=== PATIENT | male | born 1960 | race Caucasian/White ===

== ENCOUNTER 2018-05-31 11:10 | Observation (INO) | payer SELFPAY ==
--- NOTE | 2018-05-31 11:37 | EDPHY ---
H & P Stated Complaint: Bloody diarrhea x 2 days p eating. Denies pain, has Hx hemorrhoids Time Seen by Provider: 05/31/18 11:31 HPI/ROS: CHIEF COMPLAINT: Hematochezia HISTORY OF PRESENT ILLNESS: The patient presents to the ED with intermittent painless hematochezia that began on Tuesday. The patient denies significant abdominal discomfort. He does report he has been using Advil occasionally for back pain. The patient denies prior history of GI bleed. He denies using any anticoagulants. He is on a baby aspirin each day. The patient denies any travel outside the [facility]. He did have mild diarrhea earlier in the week. The patient denies fever, cough or congestion. The patient denies any hematemesis. REVIEW OF SYSTEMS: A comprehensive 10 point review of systems is otherwise negative aside from elements mentioned in the history of present illness. Source: Patient - Personal History Current Tetanus/Diphtheria Vaccine: Unsure - Medical/Surgical History Hx Asthma: No Hx Chronic Respiratory Disease: No Hx Diabetes: Yes Hx Cardiac Disease: No Hx Renal Disease: No Hx Cirrhosis: No Hx Alcoholism: No Hx HIV/AIDS: No Hx Splenectomy or Spleen Trauma: No Other PMH: IDDM, HTN, GERD, cholesterol - Social History Smoking Status: Never smoked - Physical Exam Exam: General Appearance: Alert, no distress Eyes: Pupils equal and round no pallor or injection ENT, Mouth: Mucous membranes moist Respiratory: There are no retractions, lungs are clear to auscultation Cardiovascular: Regular rate and rhythm Gastrointestinal: Abdomen is soft and nontender, no masses, bowel sounds normal Rectal exam: Gross blood noted on VERO Neurological: 5/5 strength all 4 extremities Skin: Warm and dry, no rashes Musculoskeletal: Neck is supple nontender Extremities: symmetrical, full range of motion Constitutional: Initial Vital Signs Temperature (C) 37.0 C 05/31/18 11:26 Heart Rate 91 05/31/18 11:26 Respiratory Rate 18 05/31/18 11:26 Blood Pressure 123/68 H 05/31/18 11:26 O2 Sat (%) 99 05/31/18 11:26 O2 Delivery Mode Room Air Allergies/Adverse Reactions: No Known Allergies Allergy (Unverified 05/31/18 11:25) Home Medications: Medication Instructions Recorded Insulin 70/30 Human 05/31/18 Lisinopril 05/31/18 Medical Decision Making ED Course/Re-evaluation: The patient presents to the ED with intermittent painless hematochezia this week. The patient is not anticoagulated. He has no abdominal pain or tenderness noted on exam. The patient fortunately is hemodynamically stable. His 1st hematocrit is 31. The patient's coagulation studies are within normal limits. The patient has been typed and screened. Consultation was made with Gastroenterology. I spoke with Dr. Claudia luna who requested the patient be prepped this evening and be made NPO after midnight in anticipation of colonoscopy tomorrow. Consultation was made with the hospitalist service. I spoke with them at 1:00 p.m.. The patient will be admitted by Dr. Richards I re-evaluated the patient at 1:00 p.m. Informing him of the plan for hospitalization and colonoscopy. Differential Diagnosis: Differential diagnosis considered includes upper GI bleed, lower GI bleed, diverticulitis, intra-abdominal malignancy - Data Points Laboratory Results: Laboratory Results 05/31/18 12:00 05/31/18 12:00 05/31/18 05/31/18 05/31/18 12:00 12:00 12:00 WBC 11.80 10^3/uL H 10^3/uL (3.80-9.50) RBC 3.30 10^6/uL L 10^6/uL (4.40-6.38) Hgb 10.3 g/dL L g/dL (13.7-17.5) Hct 31.1 % L % (40.0-51.0) MCV 94.2 fL fL (81.5-99.8) MCH 31.2 pg pg (27.9-34.1) MCHC 33.1 g/dL g/dL (32.4-36.7) RDW 13.0 % % (11.5-15.2) Plt Count 332 10^3/uL 10^3/uL (150-400) MPV 9.7 fL fL (8.7-11.7) Neut % (Auto) 79.5 % H % (39.3-74.2) Lymph % (Auto) 9.5 % L % (15.0-45.0) [place]on % (Auto) 8.5 % % (4.5-13.0) Eos % (Auto) 1.3 % % (0.6-7.6) Baso % (Auto) 0.9 % % (0.3-1.7) Nucleat RBC Rel Count 0.0 % % (0.0-0.2) Absolute Neuts (auto) 9.38 10^3/uL H 10^3/uL (1.70-6.50) Absolute Lymphs (auto) 1.12 10^3/uL 10^3/uL (1.00-3.00) Absolute Monos (auto) 1.00 10^3/uL H 10^3/uL (0.30-0.80) Absolute Eos (auto) 0.15 10^3/uL 10^3/uL (0.03-0.40) Absolute Basos (auto) 0.11 10^3/uL H 10^3/uL (0.02-0.10) Absolute Nucleated RBC 0.00 10^3/uL 10^3/uL (0-0.01) Immature Gran % 0.3 % % (0.0-1.1) Immature Gran # 0.04 10^3/uL 10^3/uL (0.00-0.10) PT 13.2 SEC SEC (12.0-15.0) INR 0.98 (0.83-1.16) APTT 27.2 SEC SEC (23.0-38.0) Sodium 135 mEq/L mEq/L (135-145) Potassium 4.7 mEq/L mEq/L (3.3-5.0) Chloride 101 mEq/L mEq/L (97-110) Carbon Dioxide 27 mEq/l mEq/l (22-31) Anion Gap 7 mEq/L mEq/L (6-14) BUN 23 mg/dL mg/dL (7-23) Creatinine 0.7 mg/dL mg/dL (0.7-1.3) Estimated GFR > 60 Glucose 190 mg/dL H mg/dL (70-100) Calcium 8.8 mg/dL mg/dL (8.5-10.4) Departure - Departure Disposition: [facility] Inpatient Acute Clinical Impression: Lower GI bleed, Anemia Condition: Good Referrals: SHANIA BOOTH [Primary Care Provider] - As per Instructions
[2018-05-31 12:13] LABS: PLATELET COUNT 332 10^3/uL (150-400)
[2018-05-31 12:34] LABS: INR 0.98 (0.83-1.16); PROTIME(PATIENT) 13.2 SEC (12.0-15.0)
[2018-05-31] MEDS ORDERED: ONDANSETRON DISINTEGRATING 4 MG TAB PO PRN (13:47)
[2018-05-31] MEDS ORDERED: ACETAMINOPHEN 325 MG TAB PO PRN (13:47)
[2018-05-31] MEDS ORDERED: ONDANSETRON 4 MG/2 ML VIAL IVP PRN (13:47)
[2018-05-31] MEDS ORDERED: PEG 3350/NA SULF,BICARB,CL/KCL (GAVILYTE-G) 4000 ML BTL PO ONE (16:00)
--- NOTE | 2018-05-31 16:47 | PDGENHP ---
History and Physical - Chief Complaint BRBPR - History of Present Illness 57 male with DM, htn, hld, and gerd presents to ED with rectal bleeding. 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 He then had a steak and developed diarrhea. This turned into bloody stool and he had 2 episodes of dawit blood. His symptoms improved, but today, he had recurrent episodes of diarrhea with blood mixed in with his stool. He denies abdominal pain, nausea or vomiting. No fevers or chills. No CP or SOB. He has never had a colonoscopy. He denies weight loss. No family h/o colon cancer. In the ED, his hgb was ~10. GI was consulted. He will be admitted for bowel prep and colonoscopy in the morning History Information - Allergies/Home Medication List Allergies/Adverse Reactions: No Known Allergies Allergy (Verified 05/31/18 14:22) Home Medications: Aspirin [Aspirin 81mg (*)] 81 mg PO DAILY 05/31/18 [Last Taken 05/31/18] Atorvastatin Calcium [Lipitor 20 mg (*)] 20 mg PO DAILY 05/31/18 [Last Taken ] Cholecalciferol Vit D3 [Vitamin D3 (*)] 5,000 units PO DAILY 05/31/18 [Last Taken 05/31/18] Hydrochlorothiazide [HCTZ (*)] 25 mg PO DAILY 05/31/18 [Last Taken 05/31/18] Insulin Aspart [novoLOG] 30 units SQ TIDMEAL 05/31/18 [Last Taken 05/31/18] Insulin Detemir [Levemir] 30 unit SQ BID 05/31/18 [Last Taken 05/31/18] Lisinopril [Zestril 40 mg (*)] 40 mg PO DAILY 05/31/18 [Last Taken 05/31/18] Multivitamins [Multivitamin (*)] 1 each PO DAILY 05/31/18 [Last Taken 05/31/18] Omeprazole 40 mg PO DAILY 05/31/18 [Last Taken 05/31/18] Venlafaxine Xr [Effexor Xr] 150 mg PO DAILY 05/31/18 [Last Taken Unknown] I have personally reviewed and updated: family history, medical history, social history, surgical history - Past Medical History diabetes type 2, GERD, hypertension, hyperlipidemia - Surgical History Reports: no pertinent surgical hx - Family History Positive for: non-pertinent - Social History Smoking Status: Never smoked Additional social history: Lives independently Review of Systems Review of Systems: ROS: 10pt was reviewed & negative except for what was stated in HPI & below Physical Exam Physical Exam: Temp Pulse Resp BP Pulse Ox 37.0 C 79 16 119/63 96 05/31/18 15:14 05/31/18 15:14 05/31/18 15:14 05/31/18 15:14 05/31/18 15:14 Constitutional: no apparent distress Eyes: PERRL Ears, Nose, Mouth, Throat: moist mucous membranes Cardiovascular: regular rate and rhythym Respiratory: no respiratory distress, clear to auscultation Gastrointestinal: normoactive bowel sounds, soft, non-tender abdomen, other ( palpable mass in left mid-abdomen, ?soft tissue / scar tissue ) Skin: warm Musculoskeletal: full muscle strength Neurologic: AAOx3 Psychiatric: interacting appropriately Lab Data & Imaging Review 05/31/18 16:15 05/31/18 12:00 WBC 11.80 10^3/uL (3.80-9.50) H 05/31/18 12:00 RBC 3.30 10^6/uL (4.40-6.38) L 05/31/18 12:00 Hgb 10.2 g/dL (13.7-17.5) L 05/31/18 16:15 Hct 30.9 % (40.0-51.0) L 05/31/18 16:15 MCV 94.2 fL (81.5-99.8) 05/31/18 12:00 MCH 31.2 pg (27.9-34.1) 05/31/18 12:00 MCHC 33.1 g/dL (32.4-36.7) 05/31/18 12:00 RDW 13.0 % (11.5-15.2) 05/31/18 12:00 Plt Count 332 10^3/uL (150-400) 05/31/18 12:00 MPV 9.7 fL (8.7-11.7) 05/31/18 12:00 Neut % (Auto) 79.5 % (39.3-74.2) H 05/31/18 12:00 Lymph % (Auto) 9.5 % (15.0-45.0) L 05/31/18 12:00 [place] % (Auto) 8.5 % (4.5-13.0) 05/31/18 12:00 Eos % (Auto) 1.3 % (0.6-7.6) 05/31/18 12:00 Baso % (Auto) 0.9 % (0.3-1.7) 05/31/18 12:00 Nucleat RBC Rel Count 0.0 % (0.0-0.2) 05/31/18 12:00 Absolute Neuts (auto) 9.38 10^3/uL (1.70-6.50) H 05/31/18 12:00 Absolute Lymphs (auto) 1.12 10^3/uL (1.00-3.00) 05/31/18 12:00 Absolute Monos (auto) 1.00 10^3/uL (0.30-0.80) H 05/31/18 12:00 Absolute Eos (auto) 0.15 10^3/uL (0.03-0.40) 05/31/18 12:00 Absolute Basos (auto) 0.11 10^3/uL (0.02-0.10) H 05/31/18 12:00 Absolute Nucleated RBC 0.00 10^3/uL (0-0.01) 05/31/18 12:00 Immature Gran % 0.3 % (0.0-1.1) 05/31/18 12:00 Immature Gran # 0.04 10^3/uL (0.00-0.10) 05/31/18 12:00 PT 13.2 SEC (12.0-15.0) 05/31/18 12:00 INR 0.98 (0.83-1.16) 05/31/18 12:00 APTT 27.2 SEC (23.0-38.0) 05/31/18 12:00 Sodium 135 mEq/L (135-145) 05/31/18 12:00 Potassium 4.7 mEq/L (3.3-5.0) 05/31/18 12:00 Chloride 101 mEq/L (97-110) 05/31/18 12:00 Carbon Dioxide 27 mEq/l (22-31) 05/31/18 12:00 Anion Gap 7 mEq/L (6-14) 05/31/18 12:00 BUN 23 mg/dL (7-23) 05/31/18 12:00 Creatinine 0.7 mg/dL (0.7-1.3) 05/31/18 12:00 Estimated GFR > 60 05/31/18 12:00 Glucose 190 mg/dL (70-100) H 05/31/18 12:00 POC Glucose 194 mg/dL (70-100) H 05/31/18 15:44 Calcium 8.8 mg/dL (8.5-10.4) 05/31/18 12:00 Patient ABO/Rh O POSITIVE 05/31/18 12:00 Antibody Screen NEGATIVE 05/31/18 12:00 Assessment & Plan Assessment: GIB - seems lower, possibly diverticular bleed versus hemorrhoidal. Given onset of symptoms was associated with diarrhea, will send GI pathogen panel. Trend h&h, transfuse for brisk bleeding of hgb <7. GI consulted. Bowel prep tonight and c-scope in am. Will give clear liquid diet and NPO after midnight. If c-scope unrevealing, consider CT scan given palpable mass/abnormality in left mid-abdomen, though pt believes this is scar tissue from insulin injections and he may be right. DM type 2 - bg 100's on arrival. Will give lower dose of Lantus given clear liquid diet and NPO after midnight planned. SSI. Hypertension - cont home meds Hyperlipidemia - cont statin Full code Dispo - obs
[2018-05-31] MEDS ORDERED: D50W 25 GM/50 ML SYR IVP PRN (17:02)
[2018-05-31] MEDS: INSULIN LISPRO 100 UNIT/ML SC SCH (17:36)
[2018-05-31] MEDS: INSULIN GLARGINE 100 UNITS/ML UNIT SC SCH (20:20)
[2018-06-01 05:19] LABS: PLATELET COUNT 305 10^3/uL (150-400)
[2018-06-01] MEDS ORDERED: HYDROCHLOROTHIAZIDE 25 MG TAB PO SCH (09:00)
[2018-06-01] MEDS ORDERED: ATORVASTATIN CALCIUM 20 MG TAB PO SCH (09:00)
[2018-06-01] MEDS ORDERED: PANTOPRAZOLE SODIUM 40 MG TAB PO SCH (09:00)
[2018-06-01] MEDS ORDERED: VENLAFAXINE XR 150 MG CAP PO SCH (09:00)
[2018-06-01] MEDS ORDERED: LISINOPRIL 40 MG TAB PO SCH (09:00)
[2018-06-01] MEDS ORDERED: LR 1,000 ML IV ONE (09:23)
[2018-06-01] MEDS ORDERED: MIDAZOLAM 2 MG/2 ML VIAL ONE (09:55)
[2018-06-01] MEDS ORDERED: fentaNYL 100 MCG/2 ML INJ ONE (09:55)
--- NOTE | 2018-06-01 09:58 | PDPROPOC ---
Sedation Plan of Care Sedation Plan of Care: vital signs stable, mental status noted, patient educated of risks, benefits, alternatives, patient can tolerate sedation ASA Classification: ASA 2 Planned drugs: fentanyl, midazolam Mallampati Score: Class 2 Mallampati Reference Image: Patient passed 3-3-2 rule?: Yes
--- NOTE | 2018-06-01 10:29 | GIREPORT ---
[facility] Surgical Services - Endoscopy Department Patient Name: Elia Kelly Procedure Date: 06/01/2018 9:58 AM Patient Type: Inpatient Attending MD/ ER Physician: Jessica Garcia MD Procedure: Colonoscopy Indications: Hematochezia Providers: Jessica Garcia MD Medicines: Fentanyl 100 micrograms IV, Midazolam 5 mg IV Complications: No immediate complications. Description of Procedure: After obtaining informed consent, the scope was passed under direct vis ion. Throughout the procedure, the patient's blood pressure, pulse, and oxyg en saturations were monitored continuously. The Colonoscope with irrigatio n channel was introduced through the anus and advanced to the terminal il eum. The colonoscopy was performed with ease. The patient tolerated the proc edure well. The quality of the bowel preparation was fair. The ileocecal valv e, appendiceal orifice, and rectum were photographed. Moderate Sedation: Moderate (conscious) sedation was administered by the endoscopy nurse gregorio chin supervised by the endoscopist. The following parameters were monitored: oxygen saturation, heart rate, blood pressure, and response to care. To girish physician intraservice time was 18 minutes. Findings: The perianal and digital rectal examinations were normal. The terminal ileum appeared normal. A patchy area of moderately congested, erythematous, eroded and granula r mucosa was found in the cecum. Biopsies were taken with a cold forceps for histology. Estimated blood loss was minimal. A single (solitary) three mm ulcer was found in the ascending colon. No bleeding was present. Biopsies were taken with a cold forceps for histo logy. Estimated blood loss was minimal. A patchy area of mildly granular and inflamed mucosa was found in the descending colon. Estimated Blood Loss: Estimated blood loss was minimal. Post Op Diagnosis: - Preparation of the colon was fair. - The examined portion of the ileum was normal. - Congested, erythematous, eroded and granular mucosa in the cecum. Bio psied. - A single (solitary) ulcer in the ascending colon. Biopsied. - Granular and inflamed mucosa in the descending colon. - No active bleeding. - DDX includes infection colitis vs IBD (seams less likely) vs NSAID. D oubt ischemia. Recommendation: - Await pathology results. - Advance diet as tolerated. - Check stool path panel. - No NSAIDS except baby ASA OK. - OK to d/c home today but no driving for 24 hours. - Will sign off for now and contact pt with biopsy results. - Repeat colon in 3 years due to prep. - [facility]. - Thank you for allowing me to participate in the care of your patient. Attending Participation: I personally performed the entire procedure. Jessica Garcia MD Jessica Garcia MD 06/01/2018 10:29:10 AM This report has been signed electronicallyJessica Garcia MD Number of Addenda: 0 Note Initiated On: 06/01/2018 9:58 AM Total Procedure Duration Time 0 hours 10 minutes 29 seconds [email or web address]
--- NOTE | 2018-06-01 10:47 | GCON ---
DATE OF CONSULTATION: 06/01/2018 REFERRING PHYSICIAN: Ebony Richards MD CHIEF COMPLAINT: Lower GI bleed. HISTORY OF PRESENT ILLNESS: I am asked to see this patient in consultation by Dr. Richards for chief complaint of GI bleeding. Patient is a pleasant 57-year-old who had acute onset of bright red blood on Tuesday without abdominal pain. He did have a presyncopal episode, presented to the emergency room , found to have a decrease in H and H, but otherwise hemodynamically stable. He has no prior history of GI bleeding, except for hemorrhoid many years ago. He states this started acutely with diarrhea on the same day, but no fevers or chills. No nausea, vomiting. No hematemesis. No melena. No sign ificant abdominal pain. Patient notes that with the prep, the bleeding has now stopped. He has neve r had a colonoscopy. ALLERGIES: No reported allergies. MEDICATIONS: On admission are aspirin, Lipitor, vitamins, hydrochlorothiazide, insulin, lisinopril, omeprazole, and Effexor. PAST MEDICAL HISTORY: Notable for type 2 diabetes, hypertension, hyperlipidemia, and GERD. FAMILY HISTORY: Positive for prostate cancer in his father, but no family history for colon cancer o r colon polyps. SOCIAL HISTORY: He denies alcohol or tobacco use. REVIEW OF SYSTEMS: I performed a complete review of systems, which is negative, except for the perti nent positives and negatives noted above in HPI. PHYSICAL EXAM: VITAL SIGNS: He is afebrile at 37 degrees, BP 123/68, pulse 91. GENERAL: He is kim rt and oriented in no apparent distress. EYES: No scleral icterus. HENT: No oral lesions. CARDIO VASCULAR: Regular rhythm. CHEST: Clear to auscultation. ABDOMEN: Obese, but soft and nontender. NEUROLOGIC: Nonfocal. SKIN: No rashes. LABORATORY DATA: On admission, his hematocrit was 31.1% with a hemoglobin of 10.3, and this morning is now hemoglobin 9.8, hematocrit of 30.2%, white count was initially elevated at 11.8, and platelets are 332. Coags are normal. BUN and creatinine were 23 and 0.7. ASSESSMENT: Gastrointestinal bleed with bright red blood, consistent with lower gastrointestinal ble eding, some decline in hematocrit, but with intravenous fluids, hemodynamically stable. Differential diagnosis would include diverticular bleeding. Consider colon polyp or cancer. Consider arterioven ous malformation or colitis. I think ischemic colitis is less likely given no abdominal pain. It ap pears that the bleeding has stopped overnight with the bowel prep. PLAN: Recommend colonoscopy for evaluation of lower GI bleeding, possible treatment. Further recomm endations will follow. Thank you for this consult. /[id number]/MODL
[2018-06-01 11:10] VITALS: BP 134/72
[2018-06-01] MEDS: INSULIN LISPRO 100 UNIT/ML SC SCH ×2 (11:14→11:24)
[2018-06-01] MEDS: INSULIN GLARGINE 100 UNITS/ML UNIT SC SCH (11:14)
--- NOTE | 2018-06-01 11:25 | ASMTCMCOM ---
CM Note CM Note Notes: Pts case discussed w/ JULIANA Russell. Pt is a 57 y/o man admitted for lower GI bleed. Pt is getting a colonoscopy. Pt will most likely d/c independent when medically stable. No therapies ordered at this time. CM available for changes. Plan: Independent Date Signed: 06/01/2018 11:25 AM Electronically Signed By:AIDE Baker
--- NOTE | 2018-06-01 15:17 | PDDCSUM ---
Discharge Summary Discharge Summary: Date of Admission: 05/31/2018 Date of Discharge: 06/01/2018 Consults: GI Procedures: Colonoscopy Followup: PCP in 1-2 weeks, f/u biopsy results from colonoscopy,repeat colonoscopy in 3 years per GI Hospital Course Problem List: GIB - - Arrived with BRBPR with diarrhea. GI consulted on admission, performed colonoscopy which showed small non-bleeding ulcer in ascending colon, congested , erythematous, eroded and granular mucosa in cecum, H/H remained stable, no further bleeding present. GI PCR negative DM type 2 - SSI as inpatient. Continue Lantus as outpatient, dose decreased while hospitalized due to NPO status Hypertension - cont home meds Hyperlipidemia - cont statin Time spent on discharge was >35 minutes with >50% of time spent on patient education and counseling.
== END 2018-06-01 15:36 | disposition home or self-care (01) ==
LOC: F3E 15:03
PROVIDERS: ADMIT Hospitalist; ATTEND Internal Medicine
DX: K63.3 Ulcer of intestine (principal); K92.1 Melena; K52.9 Noninfective gastroenteritis and colitis, unspecified; D64.9 Anemia, unspecified; E11.9 Type 2 diabetes mellitus without complications; I10 Essential (primary) hypertension; E78.5 Hyperlipidemia, unspecified; K21.9 Gastro-esophageal reflux disease without esophagitis; Z79.4 Long term (current) use of insulin; Z79.82 Long term (current) use of aspirin
CPT/HCPCS: G0378; J1815; J2250; J3010